=== PATIENT | male | born 1975 | race Caucasian/White ===

== ENCOUNTER → 2017-12-28 | Outpatient (CLI) | payer OTHER ==
[2017-12-28 17:14] LABS: ALKALINE PHOSPHATASE 155 U/L (45-117); BILIRUBIN, DIRECT < 0.1 mg/dL (0.0-0.2); CHOLESTEROL 265 mg/dL (<200); CPK 111 U/L (39-308); GAMMA GLUTAMYL TRANSPEPTIDASE 37 U/L (15-85)
[2017-12-28 17:22] LABS: HDL CHOLESTEROL 31 mg/dl (40-60)
[2017-12-28 18:05] LABS: SGOT/AST 23 IU/L (3-35); SGPT/ALT 45 U/L (12-78); TOTAL PROTEIN 7.6 gm/dL (6.4-8.2); TRIGLYCERIDES 2298 mg/dl (<150); URIC ACID 5.6 mg/dL (3.5-7.2)
== END | disposition home or self-care (01) ==
LOC: LAB 15:55
PROVIDERS: Family Medicine
DX: E11.9 Type 2 diabetes mellitus without complications (principal); R53.83 Other fatigue; R79.89 Other specified abnormal findings of blood chemistry

== ENCOUNTER → 2018-09-19 | Outpatient (CLI) | payer OTHER ==
[~2018-09-19] MED LIST: AMLODIPINE BESY10 MG PO; COREG25 MG PO; EPLERENONE25 MG PO; FENOFIBRATE160 MG PO; GLUCOPHAGE1000 MG PO; GLYBURIDE5 MG PO; INVOKANA100 M1 PO; LIPITOR80 MG PO; LISINOPRIL-HCT1 EACH PO; TRULICITY0.75 MG/0. SC
== END | disposition home or self-care (01) ==
LOC: RAD 14:19
DX: M25.521 Pain in right elbow (principal)

== ENCOUNTER → 2019-11-22 | Outpatient (CLI) | payer OTHER ==
[2019-11-22 16:38] LABS: BASO % 0.4 % (0.0-1.0); EOS # 0.3 10*3/uL (0.0-0.4); EOS % 4.5 % (1.0-4.0); HEMATOCRIT 48.4 % (42.0-52.0); HEMOGLOBIN 16.1 g/dl (14.0-18.0); LYMPH # 2.2 10*3/uL (1.3-4.4); LYMPH % 30.7 % (27.0-41.0); MEAN CELL VOLUME 86.4 fl (80.0-94.0); MEAN CORPUSCULAR HGB 28.8 pg (27.0-31.0); MEAN CORPUSCULAR HGB CONC 33.3 g/dl (33.0-37.0); MEAN PLATELET VOLUME 9.3 fl (9.6-12.3); MONO # 0.5 10*3/uL (0.1-1.0); MONO % 7.1 % (3.0-9.0); NEUT # 4.1 10*3/uL (2.3-7.9); PLATELET COUNT AUTOMATED 155 10*3/uL (130-400); RED CELL DISTRI WIDTH 13.6 % (0-14.5); RETICULOCYTE % 1.75 % (0.50-2.50); WHITE BLOOD COUNT 7.1 10*3/uL (4.8-10.8)
[2019-11-22 17:07] LABS: ALBUMIN 4.1 gm/dl (3.1-4.5); ALKALINE PHOSPHATASE 101 U/L (45-117); BUN 23 mg/dl (7-24); CHLORIDE 108 mmol/L (98-107); CHOLESTEROL 163 mg/dL (<200); CPK 150 U/L (39-308); GAMMA GLUTAMYL TRANSPEPTIDASE 17 U/L (15-85); HDL CHOLESTEROL 38 mg/dl (40-60); IRON 70 ug/dL (65-175); SGOT/AST 14 IU/L (3-35); SGPT/ALT 47 U/L (12-78); SODIUM 138 mmol/L (136-145); TOTAL IRON BINDING CAPACITY 318 ug/dl (250-450); TOTAL PROTEIN 7.4 gm/dL (6.4-8.2); TRIGLYCERIDES 690 mg/dl (<150)
[2019-11-22 17:37] LABS: CLARITY CLEAR (CLEAR); COLOR YELLOW (YELLOW); GLUCOSE 3+ (NEGATIVE)
[2019-11-22 17:38] LABS: BILIRUBIN NEGATIVE (NEGATIVE); BLOOD NEGATIVE (NEGATIVE); KETONE NEGATIVE (NEGATIVE); LEUKO ESTERASE NEGATIVE (NEGATIVE); NITRITE NEGATIVE (NEGATIVE); UROBILINOGEN 0.2 E.U./dl (0.2-1.0)
[2019-11-22 17:39] LABS: BACTERIA TRACE; WBC 0-2 wbc/hpf (0-5)
[2019-11-22 18:17] LABS: VITAMIN D, 25-HYDROXY 24.7 ng/mL (30-100)
== END | disposition home or self-care (01) ==
LOC: LAB 16:10
PROVIDERS: Family Medicine
DX: E78.5 Hyperlipidemia, unspecified (principal); E55.9 Vitamin D deficiency, unspecified; R79.89 Other specified abnormal findings of blood chemistry; R53.83 Other fatigue

== ENCOUNTER → 2020-11-11 | Outpatient (CLI) | payer OTHER ==
[~2020-11-11] MED LIST changes: +ASPIRIN ADULT L81 M2 PO; -LISINOPRIL-HCT1 EACH PO; +PLAVIX75 M1 PO; +PRINIVIL20 M1 PO; +XARELTO PO
--- NOTE | 2020-11-11 09:30 | NUR ---
INFORMED CONSENT OBTAINED FOR EXERCISE CARDIOLITE STRESS TEST WITH DR. LINDSAY. RESTING EKG INCOMPLETE BBB WITH A SUPINE HR OF 82 WITH BP OF 126/84 AND HR OF 89 WITH BP OF 118/84. PT DID TAKE AM MEDICATIONS INSTRUCTED. PT COMPLETED 7:00 OF A KARLA PROTOCOL WITH COMPLETION OF 1:00 OF STAGE III AT 3.4 MPH AND 14% GRADE. TEST TERMINATED BECAUSE OF FATIGUE. HAD NO CHEST PAIN WITH NO EKG CHANGES. REACHED A PEAK HR OF 145 WITH IS 83% OF PREDICTED MAX WITH A PEAK BP OF 176/100. HAS A FAIR EXERCISE TOLERANCE. LAST RECOVERY HR OF 104 WITH BP OF 146/90. AWAITING SCANNING IN STABLE CONDITION.
== END | disposition home or self-care (01) ==
LOC: CARD 00:12
PROVIDERS: ATTEND Internal Medicine Cardiovascular Disease
DX: I51.7 Cardiomegaly (principal); R94.39 Abnormal result of other cardiovascular function study

== ENCOUNTER → 2020-11-14 | Outpatient (CLI) | payer OTHER | END | disposition home or self-care (01) | LOC: LAB 18:20 | PROVIDERS: ATTEND Family Medicine | DX: R53.83 Other fatigue (principal); R79.89 Other specified abnormal findings of blood chemistry ==

== ENCOUNTER → 2021-11-17 | Outpatient (CLI) | payer OTHER | LOC: LAB 10:25 | PROVIDERS: ATTEND Family Medicine | DX: E11.9 Type 2 diabetes mellitus without complications (principal); R79.89 Other specified abnormal findings of blood chemistry ==

== ENCOUNTER → 2023-07-15 | Outpatient (CLI) | payer OTHER | END | disposition home or self-care (01) | LOC: RAD 08:00 | PROVIDERS: ATTEND Surgery | DX: Z01.818 Encounter for other preprocedural examination (principal) ==

== ENCOUNTER → 2025-07-30 | Outpatient (CLI) | payer OTHER | END | disposition home or self-care (01) | LOC: US 14:00 | PROVIDERS: ATTEND Family Medicine | DX: R22.41 Localized swelling, mass and lump, right lower limb (principal); M79.604 Pain in right leg ==